=== PATIENT | female | born 1950 | race Caucasian/White ===

== ENCOUNTER 2018-04-28 10:15 | Inpatient (IN) | payer MEDICARE, BC ==
[~2018-04-28] VITALS: Ht 172.7 cm; Wt 75.8 kg
[2018-05-19 12:09] LABS: BASOPHILS % (AUTO) 0.3 % (0-1); EOSINOPHILS # (AUTO) 0.1 X10'3 (0-0.9); EOSINOPHILS % (AUTO) 2.3 % (0-6); LYMPHOCYTES # (AUTO) 1.4 X10'3 (1.1-4.8); LYMPHOCYTES % (AUTO) 25.6 % (21-51); MEAN CORPUSCULAR HEMOGLOBIN 22.7 PG (27.0-31.0); MEAN CORPUSCULAR HGB CONC 32.5 % (33.0-36.5); MEAN CORPUSCULAR VOLUME 69.8 FL (78-98); MEAN PLATELET VOLUME 8.8 FL (7.4-10.4); MONOCYTES # (AUTO) 0.4 X10'3 (0-0.9); MONOCYTES % (AUTO) 7.7 % (2-12); NEUTROPHILS # (AUTO) 3.6 X10'3 (1.8-7.7); NEUTROPHILS % (AUTO) 64.1 % (42-75); PRE OP HEMOGLOBIN 12.1 g/dL (12.0-16.0); PRE OP PLATELET COUNT 288 X10'3 (140-440); RED BLOOD COUNT 5.31 X10'6 (4.20-5.60); RED CELL DISTRIBUTION WIDTH 17.5 % (11.5-14.5)
[2018-05-19 12:10] LABS: CLARITY,URINE CLEAR (Clear); COLOR,URINE YELLOW (Yellow); GLUCOSE, URINE 500 mg/dl (Neg); KETONES,URINE NEGATIVE (Neg); LEUKOCYTE ESTERASE ,URINE NEGATIVE (Neg); NITRITES, URINE NEGATIVE (Neg); OCCULT BLOOD,URINE NEGATIVE (Neg); PH,URINE 5.5 (4.8-8.0); PROTEIN,URINE NEGATIVE (Neg); UROBILINOGEN,URINE 0.2 E.U/dL (0.2-1.0)
[2018-05-19 12:13] LABS: UA COLLECTION TYPE CLN CATCH MIDSTREAM
[2018-05-19 12:19] LABS: PRE OP PROTIME 9.9 SECONDS (9.0-12.0)
[2018-05-19 12:23] LABS: ALBUMIN 3.5 G/DL (3.4-5.0); ALBUMIN/GLOBULIN RATIO 0.9 (1.1-1.5); ALKALINE PHOSPHATASE 97 IU/L (46-116); BLOOD UREA NITROGEN 13 MG/DL (7-18); BUN/CREATININE RATIO 14.3 (6.6-38.0); CALCIUM 9.2 MG/DL (8.5-10.1); CHLORIDE 106 MMOL/L (99-107); CREATININE 0.91 MG/DL (0.40-0.90); PRE OP ALT 18 U/L (30-65); PRE OP ANION GAP 8 (8-16); PRE OP AST 16 U/L (10-37); PRE OP BILIRUB, TOTAL 0.3 MG/DL (0.0-1.0); PRE OP GLUCOSE 164 MG/DL (70-104); PRE OP POTASSIUM 4.1 MMOL/L (3.4-5.1); PRE OP SODIUM 143 MMOL/L (135-145); TOTAL CARBON DIOXIDE 29.5 MMOL/L (24-32); TOTAL PROTEIN 7.3 G/DL (6.4-8.2); eGFR 62 ML/MIN
[2018-05-19 12:34] LABS: PLATELET ESTIMATE NORMAL
[2018-05-19 12:35] LABS: ANISOCYTOSIS 1+; ELLIPTOCYTES 2+; MICROCYTOSIS 2+
[2018-05-19 12:39] LABS: POIKILOCYTOSIS 1+
[2018-05-19] MEDS ORDERED: ATOR40TA PO (13:45)
[2018-05-19] MEDS ORDERED: APIX5TAB3 PO (13:45)
[2018-05-19] MEDS ORDERED: FLEC100T2 PO (13:46)
[2018-05-19] MEDS ORDERED: METF1000 PO (13:47)
[2018-05-19] MEDS ORDERED: OMEP10CA4 PO (13:47)
[2018-05-19] MEDS ORDERED: SITA100T11 PO (13:50)
[2018-05-19] MEDS ORDERED: TRAM50TA2 PO (13:52)
[2018-05-25] MEDS ORDERED: SPIR25TA5 PO (11:34)
[2018-05-26] VITALS (22 sets, daily range): BP systolic 123–178; BP diastolic 57–103
[2018-05-26] MEDS ORDERED: ringers solution, lacted 1,000 ML IV SCH ×2 (05:00→11:46)
[2018-05-26] MEDS ORDERED: famotidine 20mg tablet PO ONE (05:30)
[2018-05-26] MEDS ORDERED: acetaminophen 325mg tablet PO ONE (05:30)
[2018-05-26] MEDS ORDERED: oxyCODONE SR 10mg (sust. release) tab PO ONE (05:30)
[2018-05-26] MEDS ORDERED: metoclopramide 5 mg/ml inj IV ONE (05:30)
[2018-05-26] MEDS ORDERED: celeCOXIB 100mg capsule PO ONE (05:30)
[2018-05-26] MEDS ORDERED: vancomycin inj 1,500 MG in normal saline 300ml IV soln IV ONE (05:30)
[2018-05-26] MEDS ORDERED: tranexamic acid inj. 1,000 MG in normal saline 100ml IV soln 90 ML IV ONE (05:30)
[2018-05-26] MEDS ORDERED: gabapentin 300mg capsule PO ONE (05:30)
[2018-05-26] MEDS ORDERED: Cefazolin 2GM/50ML dext iso,osmotic IVPB IV ONE (05:30)
[2018-05-26] MEDS: potassium cl 20mEq in 1/2 NS 1,000 ML IV SCH ×3 (07:02→23:02)
[2018-05-26] MEDS ORDERED: oxyCODONE IR 5mg (immed. release) tablet PO PRN (07:05)
[2018-05-26] MEDS ORDERED: HYDROmorphone inj. 0.5 MG/0.5 ML DISP.SYRIN IV PRN ×2 (07:05)
[2018-05-26] MEDS ORDERED: MESSAGE TO PHARMACY PO ONE (07:05)
[2018-05-26] MEDS ORDERED: acetaminophen 325mg tablet PO PRN (07:05)
[2018-05-26] MEDS ORDERED: magnesium hydroxide 30ml (MOM) UD suspension PO PRN (07:05)
[2018-05-26] MEDS ORDERED: diphenhydrAMINE 25mg capsule PO PRN (07:05)
[2018-05-26] MEDS ORDERED: ROPIVAcaine inj 250 MG, epiNEPHrine inj 0.5 MG, CloNIDine/PF inj 80 MCG in normal salin... SQ ONE (07:05)
[2018-05-26] MEDS ORDERED: ondansetron/PF 4mg/2ml inj IV PRN ×2 (07:05→11:50)
[2018-05-26] MEDS ORDERED: glucagon, human recombinant 1mg kit SUBCUT PRN (07:05)
[2018-05-26] MEDS ORDERED: dextrose ORAL solution 15 GM/59 ML bottle PO PRN ×2 (07:05)
[2018-05-26] MEDS ORDERED: dextrose 50%-water 50ml dispensing syringe IV PRN ×2 (07:05)
[2018-05-26] MEDS ORDERED: bisacodyl 10mg suppository rectal RC PRN (07:05)
[2018-05-26] MEDS ORDERED: vancomycin 1,000mg inj ONE (07:07)
[2018-05-26] MEDS ORDERED: ketorolac trometh. 30mg/ml inj. ONE (07:07)
[2018-05-26] MEDS: gabapentin 300mg capsule PO SCH ×3 (08:00→20:05)
[2018-05-26] MEDS: spironolactone 25 MG tablet PO SCH (08:00)
[2018-05-26] MEDS: acetaminophen 325mg tablet PO SCH ×3 (08:00→20:06)
[2018-05-26] MEDS: ceFAZolin 1GM/D5W- ADD-VANTAGE 50 ML IV SCH ×2 (08:00→16:00)
[2018-05-26] MEDS: ascorbic acid 500mg tablet PO SCH ×2 (08:00→20:05)
[2018-05-26] MEDS ORDERED: vancomycin/NS 1 GM ADD-VANTAGE 250 ML IV SCH ×2 (08:00→20:00)
[2018-05-26] MEDS: flecainide 50mg tablet PO SCH ×2 (08:00→20:05)
[2018-05-26] MEDS: apixaban 5mg tablet PO SCH ×2 (08:00→20:05)
[2018-05-26] MEDS: pantoprazole 40mg Tablet.DR PO SCH (08:00)
[2018-05-26] MEDS: multivitamins, therapeutics tablet PO SCH (08:00)
[2018-05-26] MEDS ORDERED: sevoflurane 250ml liquid IH ONE (09:47)
[2018-05-26] MEDS ORDERED: fentaNYL /PF 50mcg/ml 5ml ampule ONE (09:51)
[2018-05-26] MEDS ORDERED: midazolam 2 mg/2 ml injection ONE (09:51)
[2018-05-26] MEDS ORDERED: propofol inj 20 ML IV ONE (10:08)
[2018-05-26] MEDS ORDERED: LIDOcaine 2% (20mg/ml) 5ml vial ONE (10:08)
[2018-05-26] MEDS ORDERED: ROPIVAcaine 0.5% (5mg/ml) 30ml vial ONE (10:44)
[2018-05-26] MEDS ORDERED: furosemide 40mg/4ml inj ONE (11:22)
[2018-05-26] MEDS ORDERED: morphine 4 MG/ML inj SYRINge IV PRN ×2 (11:50)
[2018-05-26] MEDS ORDERED: meperidine/PF 25mg/ml syringe IV PRN ×3 (11:50)
[2018-05-26] MEDS ORDERED: proCHLORperazine 10 MG/2 ml inj IV PRN (11:50)
[2018-05-26] MEDS ORDERED: hydrALAZINE 20mg/ml inj. IV ONE (12:20)
[2018-05-26] MEDS ORDERED: insulin regular, human 10 units/0.1 ml syringe IV ONE (12:45)
[2018-05-26] MEDS: atorvastatin 20mg tablet PO SCH (20:05)
[2018-05-26] MEDS: sennosides 8.6mg tablet PO SCH (20:05)
[2018-05-26] MEDS: oxyCODONE IR 5mg (immed. release) tablet PO PRN (21:05)
[2018-05-26] MEDS: insulin glargine (Lantus) pen - multi-dose SQ SCH (21:15)
[2018-05-27] MEDS: ceFAZolin 1GM/D5W- ADD-VANTAGE 50 ML IV SCH ×2 (00:12→07:59)
[2018-05-27 02:00] VITALS: BP 151/61
[2018-05-27] MEDS: acetaminophen 325mg tablet PO SCH ×4 (02:04→20:06)
[2018-05-27 05:00] VITALS: BP 135/57
[2018-05-27] MEDS: oxyCODONE IR 5mg (immed. release) tablet PO PRN ×4 (05:28→21:56)
[2018-05-27 06:08] LABS: BASOPHILS % (AUTO) 0.1 % (0-1); EOSINOPHILS % (AUTO) 0.3 % (0-6); HEMATOCRIT 27.7 % (35.0-45.0); LYMPHOCYTES # (AUTO) 0.8 X10'3 (1.1-4.8); LYMPHOCYTES % (AUTO) 11.8 % (21-51); MEAN CORPUSCULAR HGB CONC 32.5 % (33.0-36.5); MEAN CORPUSCULAR VOLUME 70.8 FL (78-98); MEAN PLATELET VOLUME 9.6 FL (7.4-10.4); MONOCYTES # (AUTO) 0.6 X10'3 (0-0.9); MONOCYTES % (AUTO) 7.9 % (2-12); NEUTROPHILS # (AUTO) 5.7 X10'3 (1.8-7.7); NEUTROPHILS % (AUTO) 79.9 % (42-75); PLATELET COUNT 162 X10'3 (140-440); RED BLOOD COUNT 3.91 X10'6 (4.20-5.60); RED CELL DISTRIBUTION WIDTH 17.1 % (11.5-14.5); WHITE BLOOD COUNT 7.1 X10'3 (4.5-11.0)
[2018-05-27 06:15] LABS: ANION GAP 5 (8-16); CHLORIDE 108 MMOL/L (99-107); POTASSIUM 4.5 MMOL/L (3.5-5.1); SODIUM 141 MMOL/L (135-145); TOTAL CARBON DIOXIDE 27.8 MMOL/L (24-32)
[2018-05-27] MEDS: potassium cl 20mEq in 1/2 NS 1,000 ML IV SCH ×3 (07:02→23:02)
[2018-05-27] MEDS: spironolactone 25 MG tablet PO SCH (07:59)
[2018-05-27] MEDS: ascorbic acid 500mg tablet PO SCH ×2 (08:00→20:06)
[2018-05-27] MEDS: multivitamins, therapeutics tablet PO SCH (08:00)
[2018-05-27] MEDS: gabapentin 300mg capsule PO SCH ×3 (08:00→20:06)
[2018-05-27] MEDS: apixaban 5mg tablet PO SCH ×2 (08:00→20:05)
[2018-05-27] MEDS: flecainide 50mg tablet PO SCH ×2 (08:00→20:05)
[2018-05-27] MEDS: pantoprazole 40mg Tablet.DR PO SCH (08:00)
[2018-05-27 10:00] VITALS: BP 135/50
[2018-05-27] MEDS: NUT.TX.GLUC.INTOLER,LAC-FR,REG (BOOST GLUCOSE CONTROL) 237 ML PO SCH ×2 (13:00→18:00)
[2018-05-27 14:00] VITALS: BP 137/59
[2018-05-27] MEDS: insulin Lispro (HumaLOG) vial - multi-dose SQ SCH ×2 (14:09→18:56)
[2018-05-27 18:00] VITALS: BP 144/62
[2018-05-27] MEDS: celeCOXIB 100mg capsule PO SCH (20:05)
[2018-05-27] MEDS: sennosides 8.6mg tablet PO SCH (20:06)
[2018-05-27] MEDS: atorvastatin 20mg tablet PO SCH (20:06)
[2018-05-27] MEDS: insulin glargine (Lantus) pen - multi-dose SQ SCH (21:53)
[2018-05-27] MEDS: diphenhydrAMINE 25mg capsule PO PRN (21:56)
[2018-05-27 22:00] VITALS: BP 120/51
[2018-05-28] MEDS: acetaminophen 325mg tablet PO SCH (02:00)
[2018-05-28] MEDS: oxyCODONE IR 5mg (immed. release) tablet PO PRN ×4 (05:08→19:07)
[2018-05-28 05:38] LABS: BASOPHILS % (AUTO) 0.2 % (0-1); EOSINOPHILS # (AUTO) 0.1 X10'3 (0-0.9); EOSINOPHILS % (AUTO) 2.2 % (0-6); HEMATOCRIT 26.2 % (35.0-45.0); HEMOGLOBIN 8.5 g/dl (12.0-16.0); LYMPHOCYTES # (AUTO) 1.3 X10'3 (1.1-4.8); LYMPHOCYTES % (AUTO) 24.3 % (21-51); MEAN CORPUSCULAR HEMOGLOBIN 22.8 PG (27.0-31.0); MEAN CORPUSCULAR HGB CONC 32.4 % (33.0-36.5); MEAN CORPUSCULAR VOLUME 70.5 FL (78-98); MEAN PLATELET VOLUME 9.1 FL (7.4-10.4); MONOCYTES # (AUTO) 0.6 X10'3 (0-0.9); MONOCYTES % (AUTO) 11.6 % (2-12); NEUTROPHILS # (AUTO) 3.3 X10'3 (1.8-7.7); NEUTROPHILS % (AUTO) 61.7 % (42-75); PLATELET COUNT 153 X10'3 (140-440); RED BLOOD COUNT 3.72 X10'6 (4.20-5.60); RED CELL DISTRIBUTION WIDTH 17.6 % (11.5-14.5); WHITE BLOOD COUNT 5.4 X10'3 (4.5-11.0)
[2018-05-28 06:00] VITALS: BP 155/64
[2018-05-28] MEDS: NUT.TX.GLUC.INTOLER,LAC-FR,REG (BOOST GLUCOSE CONTROL) 237 ML PO SCH ×3 (08:00→18:49)
[2018-05-28] MEDS: gabapentin 300mg capsule PO SCH ×3 (08:21→20:54)
[2018-05-28] MEDS: multivitamins, therapeutics tablet PO SCH (08:21)
[2018-05-28] MEDS: ascorbic acid 500mg tablet PO SCH ×2 (08:21→20:54)
[2018-05-28] MEDS: spironolactone 25 MG tablet PO SCH (08:21)
[2018-05-28] MEDS: pantoprazole 40mg Tablet.DR PO SCH (08:21)
[2018-05-28] MEDS: flecainide 50mg tablet PO SCH ×2 (08:22→20:54)
[2018-05-28] MEDS: apixaban 5mg tablet PO SCH ×2 (08:22→20:54)
[2018-05-28] MEDS: celeCOXIB 100mg capsule PO SCH ×2 (08:22→20:54)
[2018-05-28] MEDS: insulin Lispro (HumaLOG) vial - multi-dose SQ SCH ×3 (08:41→19:03)
[2018-05-28] MEDS ORDERED: WALKERFR (09:08)
[2018-05-28 10:00] VITALS: BP 138/60
[2018-05-28 18:00] VITALS: BP 157/70
[2018-05-28] MEDS: sennosides 8.6mg tablet PO SCH (20:54)
[2018-05-28] MEDS: atorvastatin 20mg tablet PO SCH (20:54)
[2018-05-28] MEDS: insulin glargine (Lantus) pen - multi-dose SQ SCH (21:03)
[2018-05-28] MEDS: diphenhydrAMINE 25mg capsule PO PRN (21:04)
[2018-05-28 22:00] VITALS: BP 161/61
[2018-05-29 05:00] VITALS: BP 165/38
[2018-05-29] MEDS: oxyCODONE IR 5mg (immed. release) tablet PO PRN (05:57)
[2018-05-29 07:21] LABS: WHITE BLOOD COUNT 5.8 X10'3 (4.5-11.0)
[2018-05-29 07:22] LABS: BASOPHILS % (AUTO) 0.4 % (0-1); EOSINOPHILS # (AUTO) 0.1 X10'3 (0-0.9); EOSINOPHILS % (AUTO) 1.1 % (0-6); HEMOGLOBIN 8.4 g/dl (12.0-16.0); LYMPHOCYTES % (AUTO) 17.5 % (21-51); MEAN CORPUSCULAR HEMOGLOBIN 22.6 PG (27.0-31.0); MEAN CORPUSCULAR HGB CONC 32.2 % (33.0-36.5); MEAN CORPUSCULAR VOLUME 70.2 FL (78-98); MEAN PLATELET VOLUME 8.8 FL (7.4-10.4); MONOCYTES # (AUTO) 0.7 X10'3 (0-0.9); MONOCYTES % (AUTO) 11.8 % (2-12); NEUTROPHILS % (AUTO) 69.2 % (42-75); PLATELET COUNT 167 X10'3 (140-440); RED BLOOD COUNT 3.71 X10'6 (4.20-5.60); RED CELL DISTRIBUTION WIDTH 17.6 % (11.5-14.5)
[2018-05-29] MEDS: gabapentin 300mg capsule PO SCH (07:43)
[2018-05-29] MEDS: pantoprazole 40mg Tablet.DR PO SCH (07:43)
[2018-05-29] MEDS: apixaban 5mg tablet PO SCH (07:43)
[2018-05-29] MEDS: celeCOXIB 100mg capsule PO SCH (07:43)
[2018-05-29] MEDS: ascorbic acid 500mg tablet PO SCH (07:44)
[2018-05-29] MEDS: flecainide 50mg tablet PO SCH (07:44)
[2018-05-29] MEDS: multivitamins, therapeutics tablet PO SCH (07:44)
== END 2018-05-29 09:56 | disposition home or self-care (01) | DRG 470 ==
LOC: EDSTATUS 12:15 → PAS IN 05-26 06:28 → EDSTATUS 05-26 10:30 → ORTHO 4S 05-26 13:54
PROVIDERS: ADMIT Orthopaedic Surgery; ATTEND Orthopaedic Surgery
PROC: 3E0T3BZ Introduction of Anesthetic Agent into Peripheral Nerves and Plexi, Percutaneous Approach (ICD-10-PCS; 2018-05-26)
PROC: 0SRD0J9 Replacement of Left Knee Joint with Synthetic Substitute, Cemented, Open Approach (ICD-10-PCS; principal; 2018-05-26 09:47)
DX: M17.12 Unilateral primary osteoarthritis, left knee (principal); D62 Acute posthemorrhagic anemia; E11.9 Type 2 diabetes mellitus without complications; E78.5 Hyperlipidemia, unspecified; G47.30 Sleep apnea, unspecified; I10 Essential (primary) hypertension; K21.9 Gastro-esophageal reflux disease without esophagitis; M85.80 Other specified disorders of bone density and structure, unspecified site; M54.32 Sciatica, left side; I25.10 Atherosclerotic heart disease of native coronary artery without angina pectoris; M25.762 Osteophyte, left knee; M21.162 Varus deformity, not elsewhere classified, left knee; Z96.651 Presence of right artificial knee joint; Z96.643 Presence of artificial hip joint, bilateral; Z98.891 History of uterine scar from previous surgery; Z98.51 Tubal ligation status; Z88.6 Allergy status to analgesic agent; Z79.899 Other long term (current) drug therapy; Z79.84 Long term (current) use of oral hypoglycemic drugs; Z79.01 Long term (current) use of anticoagulants; Z86.73 Personal history of transient ischemic attack (TIA), and cerebral infarction without residual deficits; Z82.49 Family history of ischemic heart disease and other diseases of the circulatory system
CPT/HCPCS: 36415; 71046; 73560; 80051; 80053; 81003; 82948; 83036; 85025; 85610; 85730; 86885; 86900; 86901; 87070; 93005; 93306; 97110; 97116; 97161; 97530; A6455; A7000; C1713; C1758; C1776; J0171; J0360; J0690; J0735; J1815; J1885; J1940; J2001; J2250; J2704; J2765; J2795; J3010; J3370; J7030; J7120; Q0163

== ENCOUNTER 2020-01-21 11:47 | Emergency (ER) | payer MEDICARE, OTHER ==
[~2020-01-21] VITALS: Ht 170.2 cm; Wt 77.3 kg
[~2020-01-21 11:47] MED LIST: APIX5TAB3 PO; ATOR40TA PO; FLEC100T2 PO; METF1000 PO; OMEP10CA5 PO; SITA100T11 PO; SPIR25TA5 PO; WALKERFR
[2020-01-21] MEDS ORDERED: TETanus/Pertussis (Acell)/Diphther VAC/PF (Tdap-Adult) 0.5ml syringe IMVAC ONE (12:20)
[2020-01-21] MEDS ORDERED: LIDOcaine 1% W/epiNEPHrine 1:200,000 10ml vial IJ ONE ×2 (12:20→13:00)
[2020-01-21] MEDS ORDERED: CEPH-572 PO (13:03)
[2020-01-21] MEDS ORDERED: bacitracin 15gm ointment TP ONE (14:05)
[2020-01-21 14:17] VITALS: BP 182/95
== END 2020-01-21 14:27 | disposition home or self-care (01) ==
LOC: ER 11:47
DX: S51.811A Laceration without foreign body of right forearm, initial encounter (principal); I48.91 Unspecified atrial fibrillation; Z88.5 Allergy status to narcotic agent; Z79.01 Long term (current) use of anticoagulants; Z79.899 Other long term (current) drug therapy; Z79.84 Long term (current) use of oral hypoglycemic drugs; W18.39XA Other fall on same level, initial encounter; Y93.89 Activity, other specified; Y92.89 Other specified places as the place of occurrence of the external cause; Y99.8 Other external cause status
CPT/HCPCS: 12032; 90471; 90715; 99284